=== PATIENT | male | born 1995 | race Caucasian/White ===

== ENCOUNTER 2017-02-28 07:34 | Emergency (ER) | payer OTHER ==
[2017-02-28 07:46] VITALS: BP 125/77
--- NOTE | 2017-02-28 07:56 | UC ---
Throat Pain/Nasal Darci HPI - HPI Summary HPI Summary: Sore throat, swollen tonsils, left neck swollen and tender lymph node, fever for two days. no cough. - History of Current Complaint Chief Complaint: UCRespiratory Stated Complaint: FEVER,SORE THROAT Time Seen by Provider: 02/28/17 07:45 Hx Obtained From: Patient Onset/Duration: Gradual Onset Severity: Moderate Cough: None Associated Signs & Symptoms: Positive: Dysphagia, Fever. Negative: FB Sensation , Drooling, Wheezing, Hoarseness, Sinus Discomfort, Nasal Discharge, Vomiting, Rash - Epiglottits Risk Factors Epiglottis Risk Factors: Negative - Allergies/Home Medications Allergies/Adverse Reactions: Allergies Allergy/AdvReac Type Severity Reaction Status Date / Time No Known Allergies Allergy Verified 02/28/17 07:40 Home Medications: Home Medications Dextromethorphan-Phenylephrine [Tylenol Cold Max 10-5-325 mg] 1 tab PO Q4H PRN 02/28/17 [History Confirmed 02/28/17] Ibuprofen TAB* [Advil TAB*] 600 mg PO Q6H PRN 02/28/17 [History Confirmed ] PMH/Surg Hx/FS Hx/Imm Hx Endocrine History Of: Denies: Diabetes - Surgical History Surgical History: None - Family History Known Family History: Negative: Diabetes - Social History Occupation: Student Alcohol Use: Occasionally Substance Use Type: None Smoking Status (MU): Never Smoked Tobacco - Immunization History Vaccination Up to Date: Yes Review of Systems All Other Systems Reviewed And Are Negative: Yes Physical Exam Triage Information Reviewed: Yes Appearance: Well-Appearing, No Pain Distress, Well-Nourished Vital Signs: Initial Vital Signs Temp 98 F 02/28/17 07:42 Pulse 85 02/28/17 07:42 Resp 14 02/28/17 07:42 BP 125/77 02/28/17 07:42 Pulse Ox 100 02/28/17 07:42 Vital Signs Reviewed: Yes Eye Exam: Normal ENT: Positive: Pharyngeal erythema, TMs normal, Tonsillar swelling, Tonsillar exudate. Negative: Nasal congestion, Trismus, Muffled/hoarse voice Neck: Positive: Tenderness @, Enlarged Nodes @ - left submandibular swelling. Respiratory Exam: Normal Respiratory: Positive: Chest non-tender, Lungs clear, Normal breath sounds, No respiratory distress Cardiovascular Exam: Normal Abdominal Exam: Normal Abdomen Description: Positive: Nontender Musculoskeletal Exam: Normal Musculoskeletal: Positive: Strength Intact, ROM Intact, No Edema Neurological Exam: Normal Neurological: Positive: Alert, Muscle Tone Normal. Negative: Fatigued Psychological Exam: Normal Skin Exam: Normal Throat Pain/Nasal Course/Dx - Differential Dx/Diagnosis Differential Diagnosis/HQI/PQRI: Mononucleosis, Peritonsillar Abscess, Pharyngitis, Sinusitis, Tonsillitis, URI Provider Diagnoses: strep throat. Discharge - Discharge Plan Condition: Good Disposition: HOME Prescriptions: Amoxicillin/Clavulanate TAB* [Augmentin TAB 875*] 875 mg PO BID #20 tab Patient Education Materials: Strep Throat (ED) Referrals: Aureliano Coker MD [Primary Care Provider] - If Needed
== END 2017-02-28 07:57 | disposition home or self-care (01) ==
LOC: UCCORT 07:34
DX: J02.0 Streptococcal pharyngitis (principal)
CPT/HCPCS: 99202; G0463

== ENCOUNTER 2017-05-17 16:18 | Emergency (ER) | payer OTHER ==
--- NOTE | 2017-05-17 16:37 | UC ---
Back Pain HPI - HPI Summary HPI Summary: complaint of intermittent pain in the back of his left hamstring since 02/2017 started to have bilateral lower back pain that started 2 days ago today woke up with pain in sacrum bending forward increases pain, sitting makes it more painful constant non radiating pain nothing lessens the pain tried stretching without relief works at [employer] hasn't taken any medications for pain denies fever, dysuria, no unintentional weight loss, incontinence denies trauma - History of Current Complaint Chief Complaint: UCBackPain Stated Complaint: LOW BACK PAIN/LEG PAIN Time Seen by Provider: 05/17/17 16:29 Hx Obtained From: Patient - Allergies/Home Medications Allergies/Adverse Reactions: Allergies Allergy/AdvReac Type Severity Reaction Status Date / Time No Known Allergies Allergy Verified 05/17/17 16:27 Home Medications: Home Medications Metabolism Suplement DAILY 05/17/17 [History] Multiple Vitamins W/ Minerals [Multivitamin Adults] 1 tab PO DAILY 05/17/17 [ History Confirmed 05/17/17] PMH/Surg Hx/FS Hx/Imm Hx Previously Healthy: Yes - Surgical History Surgical History: None - Family History Known Family History: Negative: Cardiac Disease, Hypertension, Diabetes - Social History Occupation: Employed Full-time Lives: With Family Alcohol Use: Occasionally Substance Use Type: None Smoking Status (MU): Never Smoked Tobacco - Immunization History Vaccination Up to Date: Yes Review of Systems Constitutional: Negative Skin: Negative Eyes: Negative ENT: Negative Respiratory: Negative Cardiovascular: Negative Gastrointestinal: Negative Genitourinary: Negative Motor: Negative Neurovascular: Negative Musculoskeletal: Other: - lower bcak pain, lower leg pain Neurological: Negative Psychological: Negative All Other Systems Reviewed And Are Negative: Yes Physical Exam Triage Information Reviewed: Yes Appearance: No Pain Distress, Well-Nourished, Thin Vital Signs: Initial Vital Signs Temp 99.6 F 05/17/17 16:23 Pulse 77 05/17/17 16:23 Resp 16 05/17/17 16:23 BP 127/77 05/17/17 16:23 Pulse Ox 100 05/17/17 16:23 Vital Signs Reviewed: Yes Eyes: Positive: Conjunctiva Clear ENT: Positive: Pharynx normal, TMs normal Neck: Positive: No Lymphadenopathy Respiratory: Positive: Lungs clear, Normal breath sounds, No respiratory distress, No accessory muscle use Cardiovascular: Positive: RRR, No Murmur, Pulses Normal Abdomen Description: Positive: Nontender, Soft. Negative: CVA Tenderness (R), CVA Tenderness (L) Bowel Sounds: Positive: Present Musculoskeletal: Positive: Other: - Spine have no noted deformities or signs of inflammation. Curvature of thoracic, and lumbar spine are within normal limits. Bony features of shoulders and hips are of equal height bilaterally. Posture is upright, and gait is smooth and normal. Spinous processes of T1-L5 palpable, midline, and non-tender; No step-offs. lower lumbar paraspinal tenderness. Flexion, extension, and rotation of the remaining spinal column is within normal limits. . Lateral bending causes no discomfort when bending to the right and left side Neurological: Positive: Other: - patellar reflexes intact, SLR negative Psychological Exam: Normal Skin Exam: Normal Back Pain Course/Dx - Course Course Of Treatment: exam completed. no red flags to warrant imaging at this time. will start NSAIDS and flexeril and refer to further evaluation and treatment of lower back pain and left leg pain - Differential Dx/Diagnosis Differential Diagnosis/HQI/PQRI: Herniated Disc, Strain, Sprain Provider Diagnoses: lower back pain. left leg pain Discharge - Discharge Plan Condition: Stable Disposition: HOME Prescriptions: Cyclobenzaprine TAB* [Flexeril 10 MG TAB*] 10 mg PO BID PRN #20 tab PRN Reason: Spasms Ibuprofen TAB* [Motrin TAB* 800 MG] 800 mg PO Q8H #30 tab Patient Education Materials: Low Back Strain (ED), Musculoskeletal Pain (ED) Forms: *Work Release Referrals: Aureliano Coker MD [Medical Doctor] - Additional Instructions: Start flexeril as directed. Do not drink or drive while on flexeril. Please call physical therapy for further evaluation and treatment. Take ibuprofen for fever or pain. Increase fluids and rest. Please review your discharge instructions. If your symptoms do not improve please call your primary care provider or return to urgent care. Your blood pressure is pre-hypertensive reading. Please contact your primary care provider within 1 day -4 weeks for further evaluation
[2017-05-17 16:52] VITALS: BP 127/77
== END 2017-05-17 16:59 | disposition home or self-care (01) ==
LOC: UCCORT 16:18
DX: M54.5 Low back pain (principal); M79.605 Pain in left leg
CPT/HCPCS: 99212; G0463